=== PATIENT | female | born 1990 | race Caucasian/White ===

== ENCOUNTER 2018-05-15 04:20 | Inpatient (IN) | payer OTHER, SELFPAY ==
--- NOTE | 2018-05-15 | PLAC_PTH ---
PATIENT: GWEN GREENWOOD LOC: [facility] U#:[id number] AGE/SX: 27/F ROOM: WP009 RE05/15/[address]: Dr. Raisa Beebe DO : 1990 BED: 1 DIS: 05/18/2018 SPEC #: [id number] RECD: 05/16/18 08:09 STATUS: LLUVIA JIMENA #: [id number] DEBBY: 05/15/18 00:[address]: Raisa Beebe DEPT: SURGICAL PATHOLOGY RECD BY: Moreno Goodson ENTERED: 05/17/18 08:09 SP TYPE: PLACENTA OTHR DR: Cassius Smith MD Tissues: Placenta, NOS Procedures: Surgery Specimen Level V HEADER OPERATION: section PRE-OP DIAGNOSIS: tachycardia in labor TISSUE SUBMITTED: Placenta MICROSCOPIC DIAGNOSIS Placenta: Placental disc - third trimester placenta (406 g). - Focal area of infarction (2.5 cm in greatest dimension). Membrane - focal acute deciduitis and minimal acute chorioamnionitis. Umbilical cord - three blood vessels and no pathologic diagnosis. SJ:laine 05/19/18 MICROSCOPIC DESCRIPTION Slides are reviewed. GROSS DESCRIPTION SPECIMEN: PLACENTA / CLINICAL INFORMATION: A. Weight: 3.124 kg B. Gestational Age: 40 weeks C. Sex: Female PLACENTAL WEIGHT (POST FIXATION): 406 g PLACENTAL DIMENSIONS: 15 x 15 x 3 PLACENTAL SHAPE: Usual ovoid PLACENTAL WEIGHT FOR GESTATIONAL AGE: Within 10-99th percentile. MEMBRANES - Present A. Insertion: Marginal B. Site of rupture: at edge of placental disc C. Color of membrane: Finn-loaiza D. Abnormalities: None UMBILICAL CORD - Present A. Color: Finn-loaiza B. Insertion: Eccentric C. Length: 13.5 cm D. Diameter: 1.5 cm E. Number of vessels: Three F. Abnormalities: None PLACENTAL DISC - Present A. Color of surface: Finn-loaiza B. surface abnormalities: None C. Maternal cotyledons: Intact with minimal tears D. Attached retro placental clot: No clot E. Cut surface: Dark red and spongy. F. Lesions: a firm finn-white plaque-like lesion measuring 2.5 x 2 cm close to the maternal surface. G. Separate clot: Absent SECTIONS SUBMITTED: 1. Membrane roll and umbilical cord ( end notched) 2. Placental disc, and maternal surfaces and lesion 3. Placental disc, and maternal surfaces 4. Placental disc, and maternal surfaces AM:laine 05/18/18 TC: 5 CPT: 28838
[2018-05-15 03:16] VITALS: BMI 43.1
[2018-05-15] MEDS: Lactated Ringers 1,000 ML 50 ML IV ×5 (04:30→20:18)
[2018-05-15 04:51] LABS: Hematocrit 34.9 % (37-47); Hemoglobin 11.5 g/dl (12.0-15.0); Mean Corpuscular Hgb 28.9 pg (27.0-32.0); Mean Corpuscular Volume 87.7 fL (81-99); Mean Platelet Vol. 9.2 fl (6.2-12.0); Platelet Count 290 K/mm3 (150-450); RBC Distribution Width CV 14.7 % (11.6-14.6); RBC Distribution Width SD 47.4 fl (35.1-43.9); Red Blood Count 3.98 M/mm3 (4.2-5.4); White Blood Count 13.3 K/mm3 (4.4-11.0)
[2018-05-15 04:52] LABS: Scan Indicated on CBC? Y/N NO
[2018-05-15] MEDS: Ondansetron 4 MG/2 ML Vial IV (08:14)
--- NOTE | 2018-05-15 09:04 | PCM.HP.OB ---
- Problem List (1) Obesity affecting Status: Acute (2) Anemia affecting Status: Acute (3) Mild persistent asthma Status: Acute History Date of Admission: 05/15/18 Final DAT: 05/17/18 Final DAT Source: [place] <20 weeks Gestational age: 39 Weeks and 5 Days History of this : This is a 27 year-old, G [1], P [0], at 40 weeks gestational age. Presented to L&D with contractions that started yesterday morning around 0600. Throughout the day contractions increased in pain and frequency to every 5minutes. She thought her water had broken due to feeling fluild leakage. Upon arrival, membranes intact and 4cm. Progresed to 5cm and admitted to L&D. Allergies No Known Allergies Allergy (Verified 05/15/18 03:21) Home Medications: Home Medications Albuterol IH (ProAir) [Proair Hfa] 1 puff INHALATION Q4H PRN PRN 05/15/18 Vits [Prenatabs FA] 1 tablet PO DAILY 05/15/18 Smoking Status: Never smoker Alcohol: None Number of Fetus(es): 1 Heart Tracin, minimal variability, accels, variable decel, Category 2 TOCO: every 2-4 minutes, strong Vertex History Past Pregnancies: Past Pregnancies Delivery Date Name GA/Weeks Outcome Route Weight Infant Gender Labor Length Anesthesia Delivery Location Provider FOB Labs: GBS negative RPR negative Rubella immune HIV negative HBsAG negative O positive Expected Delivery Method: Spontaneous Vaginal Review of Systems Constitutional: Denies: Chills, Fever, Weight Change HEENT: Denies: Head Aches, Sinus Congestion, Sinus Drainage Cardiovascular: Denies: Chest Pain, Palpitations Respiratory: Denies: Cough, Shortness of breath at rest, Sputum production Gastrointestinal: Reports: Abdominal Pain. Denies: Nausea, Vomiting Genitourinary: Denies: Dysuria Psychiatric: Denies: Anxiety, Depression, Homicidal Ideations, Suicidal Ideations Physical Exam General: Alert, Oriented x3, No apparent distress HEENT: Atraumatic, Normocephalic Cardiovascular: Regular rate, Regular Rhythm, No murmurs Lungs: Clear to auscultation, No rhonchi, No wheeze Abdomen: Gravid Extremities:: No edema Estimated gestational size: Appropriate for gestational size Presentation: Cephalic Cervix Dilation (cm): 7 - AROM for meconium stained fluid Station: -2 Effacement (%): 90 Assessment/Plan All Active Problems Obesity affecting (Acute) Anemia affecting (Acute) Mild persistent asthma (Acute) This is a 27 year-old, G [1], P [0], at 40 weeks gestational age for active labor. Category 2 FHR P: 1) Admit to L&D 2) Continuous monitoring. 3) Epidural for pain management 4) Dr. Beebe notified of admission and patient status. Tiki Hawkins, ELAINE, CNM
--- NOTE | 2018-05-15 10:04 | PCM.PN.BLA ---
Progress Note At bedside to check on pt. Comfortable with epidural. Cvx 8/90/-2, majority of cervix noted anteriorly and on pt's left side. Pt placed back in left lateral. FHT 135/mod lalo/+accels/+occasional early decels. [place] ctx's q 2-4 min, spaced apart. Continue current management. Will start pitocin for augmentation if no cervical change at next check.
[2018-05-15] MEDS: Oxytocin 30 units/NS 500 ml 30 UNITS/500 ML IV.SOLN IV (11:14)
[2018-05-15] MEDS: fentaNYL-bupivacaine (epidural) 100 ML BAG EPIDURAL ×3 (11:33→20:18)
--- NOTE | 2018-05-15 19:24 | PCM.PN.BLA ---
Progress Note Was been at bedside pushing with patient. Cvx 10/100/+1, OP position. FHT 160/mod lalo/no accels/+early decels with psuhing. [place] w/ ctx's q 3-4 min. Pit at 8 mu/min. Attempted rotation of fetus, remained in OP position. Placed patient in hands and knees, and had her push in this position for ~20 min. Still OP position and +1 station. Patient has been pushing for 2.5 hours now. Placed patient in right lateral position, and having her push on her side.
--- NOTE | 2018-05-15 20:44 | PN_ITS ---
Progress Note Patient has been pushing for 3.5 hours. She is becoming exhausted. Station remains +1, and position OP. Infant forming more caput. Unable to rotate infant with position changes and manual rotation. FHT now 160/mod lalo/+accels/+late decels with pushing. Pt remains afebrile. [place] w/ ctx's q 2-4 min. Discussed PLTCS with patient given failure to descend. Reviewed risks including bleeding, infection, and injury to surrounding organs and vessels. Patient agreeable to PLTCS. Patient okay with blood transfusion if necessary.
[2018-05-15] MEDS: Sodium Citrate/Citric Acid 30 ML UDC PO (21:12)
[2018-05-15] MEDS: Cefazolin 2 GM in 0.9% Normal Saline 100 ML IV (21:15)
[2018-05-15] MEDS: Oxytocin 30 units/NS 500 ml 30 UNITS/500 ML IV.SOLN 167 UNITS IV (21:26)
[2018-05-15 22:25] VITALS: BP 138/75; BP 147/83; PULSE 106; RESP 18; TEMP 37; O2SAT 97
[2018-05-15] MEDS: Lactated Ringers 1,000 ML 100 ML IV (22:25)
--- NOTE | 2018-05-15 22:35 | OP.PCM_ITS ---
- Problem List (1) Failure of descent in labor, delivered, current hospitalization Status: Acute Delivery Classification: LIBERTAD Final DAT: 05/17/18 Gestational age: 39 Weeks and 5 Days Indications: 1. Term IUP 2. OP position 3. Failure to descend in labor Indications for : Failure of Descent Description of Procedure: Indications: The patient is a 27-year-old at 39 weeks gestation who presented in active labor. She progressed to 8 cm dilated, and then required augmentation with Pitocin. The was noted to be asynclitic and not well engaged. After augmentation with Pitocin she progressed to complete. The infant was noted to be in OP position. Manual rotation of the , as well as multiple position changes were attempted to rotate the . After 3-1/2 hours of pushing, the remained at +1 station. There was no change in station noted with pushing, and the remained in OP position despite attempts at rotation. The heart rate tracing then began to have late decelerations with pushing. The decision was made for a primary section. Risks, benefits, and alternatives were discussed with the patient she was fully consented. Procedure: The patient was taken to the operating room where epidural anesthesia was found to be adequate. The patient was prepped and draped in the usual sterile fashion in the dorsal supine position with a leftward tilt. A Pfannenstiel skin incision was made with the scalpel and carried through to the underlying layer of fascia. The fascia was incised in the midline and extended laterally using Koch scissors. Abdiel clamps were used to elevate the superior aspect of the fascial incision, and the underlying rectus muscles were dissected off bluntly and using Koch scissors. Attention was then turned to the inferior aspect of the fascial incision. The inferior aspect was grasped with Abdiel clamps, elevated, and the underlying rectus muscles were dissected off bluntly and using Koch scissors. The rectus muscles were dissected in the midline. The peritoneum was identified and entered using Metzenbaum scissors. The incision was extended superiorly and inferiorly with good visualization of the bladder. The bladder blade was inserted. The vesicouterine peritoneum was identified and entered sharply using Metzenbaum scissors. The incision was extended laterally and the bladder flap was created digitally. The bladder blade was reinserted. The lower uterine segment was incised in a transverse fashion using a scalpel and extended bluntly. The infant was subsequently delivered in OP position with assistance from a hand from below. The nose and mouth were bulb suctioned. The cord was immediately clamped and cut. The infant was handed off to the waiting nursery nurse. The placenta was delivered intact and sent to pathology. The uterus was exteriorized and cleared of all clot and debris. The uterine incisi on was repaired in one layer using Vicryl. Minimal bilateral extensions of the uterine incision were noted and repaired with the closure of the uterine incision. Several additional [id number] sutures were placed along the uterine incision for hemostasis. The uterus was placed back into the abdomen after noting normal bilateral fallopian tubes and ovaries. Arrista was placed over the uterine incision. Hemostasis was again noted. The peritoneum was reapproximated using Vicryl. The fascia was closed using Vicryl. The subcutaneous layer was irrigated and closed in a running fashion using Vicryl. The skin was then closed in a subcuticular fashion using Monocryl. Sponge, lap, instrument, and needle counts were correct. The patient was taken to the recovery room in stable condition. Amniotic Membrane Rupture Type: Artificial Amniotic Fluid Description: Moderate meconium Placenta Disposition: [facility] Drain: Max to straight drain Cord Entanglement: None Esitmated Blood Loss (ml): 700 Infant Gender: Female Delayed cord clamping: No Pre-op Antibiotic Given: Ancef 2 grams IV x1 Complications: None - Admit VTE Documentation VTE Mechan Device Prophylaxis: SCD's Baby B - Information Amniotic Membrane Rupture Type: Spontaneous
[2018-05-15 22:45] VITALS: BP 133/76; BP 147/83; PULSE 109; RESP 18; TEMP 37.1; O2SAT 97
[2018-05-15 23:00] VITALS: BP 130/79; BP 147/83; PULSE 108; RESP 18; TEMP 36.4; O2SAT 96
[2018-05-15 23:15] VITALS: BP 130/72; BP 147/83; PULSE 104; RESP 18; TEMP 36.5; O2SAT 96
[2018-05-15 23:30] VITALS: BP 124/65; BP 147/83; PULSE 101; RESP 18; TEMP 36.3; O2SAT 96
[2018-05-15 23:45] VITALS: BP 123/67; BP 147/83; PULSE 94; RESP 18; TEMP 36.2; O2SAT 96
[2018-05-16] VITALS (21 sets, daily range): BP systolic 108–147; BP diastolic 58–83; PULSE 88–118; RESP 16–20; TEMP 36.3–37.4; O2SAT 94–99
[2018-05-16] MEDS: Lactated Ringers 1,000 ML 100 ML IV ×2 (02:00→12:41)
[2018-05-16] MEDS: 0.9% Saline Lock 10 ML Syringe IV ×5 (04:47→23:08)
[2018-05-16] MEDS: Ketorolac 30 MG/ML Syringe IV ×4 (04:47→23:08)
[2018-05-16] MEDS: Cefazolin 2 GM in 0.9% Normal Saline 100 ML IV (04:48)
[2018-05-16 06:49] LABS: Hematocrit 28.3 % (37-47); Hemoglobin 9.2 g/dl (12.0-15.0); Mean Corp Hgb Conc 32.5 g/gl (32-36); Mean Corpuscular Volume 89.3 fL (81-99); Mean Platelet Vol. 8.7 fl (6.2-12.0); Platelet Count 216 K/mm3 (150-450); RBC Distribution Width CV 15.1 % (11.6-14.6); RBC Distribution Width SD 49.5 fl (35.1-43.9); Red Blood Count 3.17 M/mm3 (4.2-5.4); White Blood Count 13.9 K/mm3 (4.4-11.0)
[2018-05-16 07:03] LABS: Scan Indicated on CBC? Y/N NO
--- NOTE | 2018-05-16 07:07 | NURSING ---
epidural catheter removed @ 0545 and blue tip intact.
--- NOTE | 2018-05-16 08:43 | PCM.PN.OB ---
Patient Problems: Active and Suspected Problems Obesity affecting (Acute) Anemia affecting (Acute) Mild persistent asthma (Acute) Failure of descent in labor, delivered, current hospitalization (Acute) Subjective: Patient doing well. Pain is well controlled. Has not ambulated yet. Max is still in place. Tolerating small amounts of PO without nausea or vomiting. Denies lightheadedness, dizziness, chest pain, shortness of breath, leg pain. Lochia normal. - Physical Exam General: Alert, Oriented x3 HEENT: Atraumatic Lungs: - - No increased resp effort Abdomen: Soft, - - ATTP, FF@U, bandage c/d/i without surrounding errythema or swelling Extremities: No clubbing, No Calf Tenderness Skin: No rashes Neurological: Neuro grossly intact Psych/Mental Status: Normal Affect, Appropriate Vital Signs Temp Pulse Resp BP Pulse Ox 97.6 F L 106 H 18 108/67 97 05/16/18 06:45 05/16/18 07:49 05/16/18 07:49 05/16/18 06:45 05/16/18 07:49 Oxygen Delivery Method Room Air Weight: 228 lb 4 oz Body Mass Index (BMI) 43.1 Intake and Output for Last 24 Hours 05/14/18 05/15/18 05/16/18 23:59 23:59 23:59 Intake Total 4587 / 4587 1401 / 1401 Output Total 1600 / 1600 525 / 525 Balance 2987 / 2987 876 / 876 Laboratory Tests Past 24 Hrs 05/16/18 06:35 WBC 13.9 H RBC 3.17 L Hgb 9.2 L Hct 28.3 L MCV 89.3 MCH 29.0 MCHC 32.5 RDW 15.1 H RDW Differential 49.5 H Plt Count 216 MPV 8.7 Medical Necessity - Tobacco Use Smoking Status: Never smoker Assessment/Plan All Active Problems Obesity affecting (Acute) Anemia affecting (Acute) Mild persistent asthma (Acute) Failure of descent in labor, delivered, current hospitalization (Acute) POD#1 s/p PLTCS for failure to descend. - HR 101, 106 this AM. Otherwise AF, VSS. Continue to monitor tachycardia. Pt asymptomatic this morning. Likely from acute blood loss anemia from surgery - Hgb 9.2 post-op, start iron daily - DVT proph: lovenox and SCD's - - Undecided on control plan - Dispo: Encouraged ambulation today. Max to be removed today. Routine PO care
[2018-05-16] MEDS: Enoxaparin 40 MG/0.4 ML Syringe SC (11:02)
[2018-05-16] MEDS: Ferrous Sulfate 325 MG Tablet PO (12:43)
[2018-05-16] MEDS: Senna/Docusate Sodium 1 Tablet PO (12:45)
[2018-05-16] MEDS: Acetaminophen 500 MG Tablet 1000 MG PO (20:33)
[2018-05-17 01:30] VITALS: BP 108/65; PULSE 99; RESP 16; TEMP 36.5; O2SAT 95
[2018-05-17] MEDS: 0.9% Saline Lock 10 ML Syringe IV ×4 (04:19→23:11)
[2018-05-17] MEDS: Ketorolac 30 MG/ML Syringe IV ×4 (04:19→23:11)
[2018-05-17 07:50] VITALS: BP 127/82; PULSE 113; RESP 20; TEMP 37.2; O2SAT 97
[2018-05-17] MEDS: Enoxaparin 40 MG/0.4 ML Syringe SC (10:35)
[2018-05-17] MEDS: Bisacodyl 10 MG Suppository RECTAL (10:57)
--- NOTE | 2018-05-17 12:57 | PCM.PN.OB ---
Patient Problems: Active and Suspected Problems Obesity affecting (Acute) Anemia affecting (Acute) Mild persistent asthma (Acute) Failure of descent in labor, delivered, current hospitalization (Acute) Subjective: Doing well per patient and nursing staff. Ambulating and taking PO without difficulty. Voiding and passing flatus, no BM. Has taken stool softner and suppository. Taking PO iron supplementation. at this time. Denies any headache, visual changes, chest pain, SOB, increased bleeding or pain. Would like discharge home tomorrow. - Physical Exam General: Alert, Oriented x3, Cooperative HEENT: Atraumatic, Normocephalic Lungs: Clear to auscultation, No rhonchi, No wheeze Cardiovascular: Regular rate, Regular Rhythm, No murmurs Abdomen: Hyperactive Bowel Sounds, - - Fundus firm 1 below U. Insicion dry and intact, no surrounding erythema. Extremities: No edema, No Calf Tenderness Psych/Mental Status: Normal Affect, Appropriate Vital Signs Temp Pulse Resp BP Pulse Ox 98.9 F 113 H 20 H 127/82 H 97 05/17/18 07:50 05/17/18 07:50 05/17/18 07:50 05/17/18 07:50 05/17/18 07:50 Oxygen Delivery Method Room Air Weight: 228 lb 4 oz Body Mass Index (BMI) 43.1 Intake and Output for Last 24 Hours 05/15/18 05/16/18 05/17/18 23:59 23:59 23:59 Intake Total 4587 / 4587 3749 / 3749 Output Total 1600 / 1600 2775 / 2775 Balance 2987 / 2987 974 / 974 Medical Necessity - Tobacco Use Smoking Status: Never smoker Assessment/Plan All Active Problems Obesity affecting (Acute) Anemia affecting (Acute) Mild persistent asthma (Acute) Failure of descent in labor, delivered, current hospitalization (Acute) A:POD #2 Section SANGITA P: 1) Routine post op care. 2) Planning D/C home tomorrow. Asking for further assistance with , to see her today. 3) No BM, bowel sounds hyperactive, given suppository.
[2018-05-17 14:00] VITALS: BP 121/78; PULSE 109; RESP 20; TEMP 36.6; O2SAT 97
[2018-05-17] MEDS: Ferrous Sulfate 325 MG Tablet PO (14:37)
[2018-05-17 20:10] VITALS: BP 124/64; PULSE 89; RESP 18; TEMP 36.3
[2018-05-18 02:00] VITALS: BP 131/65; PULSE 89; RESP 18; TEMP 36.7
--- NOTE | 2018-05-18 08:27 | PCM.PN.OB ---
Patient Problems: Active and Suspected Problems Obesity affecting (Acute) Anemia affecting (Acute) Mild persistent asthma (Acute) Failure of descent in labor, delivered, current hospitalization (Acute) Subjective: Patient doing well. Pain controlled. Tolerating regular diet without nausea or vomiting anus. Spontaneously voiding without difficulty. Passing flatus. Lochia normal. Breast-feeding. Denies chest pain, shortness of breath, leg pain. Feels ready to go home today. - Physical Exam General: Alert, Oriented x3 HEENT: Atraumatic Lungs: - - No increased resp effort Abdomen: Soft, Non Tender, - - FF@U, dressing c/d/i and without surrounding errythema Extremities: No edema, No Calf Tenderness Skin: No rashes Neurological: Neuro grossly intact Psych/Mental Status: Normal Affect, Appropriate Vital Signs Temp Pulse Resp BP Pulse Ox 98.1 F 89 18 131/65 H 97 05/18/18 02:00 05/18/18 02:00 05/18/18 02:00 05/18/18 02:00 05/17/18 14:00 Oxygen Delivery Method Room Air Weight: 228 lb 4 oz Body Mass Index (BMI) 43.1 Intake and Output for Last 24 Hours 05/16/18 05/17/18 05/18/18 23:59 23:59 23:59 Intake Total 3749 / 3749 Output Total 2775 / 2775 Balance 974 / 974 Medical Necessity - Tobacco Use Smoking Status: Never smoker Assessment/Plan All Active Problems Obesity affecting (Acute) Anemia affecting (Acute) Mild persistent asthma (Acute) Failure of descent in labor, delivered, current hospitalization (Acute) Patient is postop day 3 from a primary low transverse section. - , considering formula feeding - Declines control - Doing well - D/c home today. Reviewed discharge instructions
--- NOTE | 2018-05-18 08:33 | DCINST_ITS ---
Discharge Diet: No Restrictions Discharge Activity: May not drive while taking narcotic pain medications., May Shower May resume sexual activity in: 4-6 weeks Weight Bearing Status: Weight bearing as tolerated Lifting Restrictions: Nothing greater than 25 lbs Call your doctor if your incision/area has: Increased Pain/ Swelling, Increased Redness, Foul Smelling Discharge, Swelling at the incision site Call your doctor if you observe: Fever of 101 or Higher, Inability to urinate, Inability to have a bowel movement, Using more than one pad per hour, Shortness of breath, Dizziness, Chest pain, Increased palpitations (irregular heartbeat), Calf discomfort, Uncontrolled pain Suture Line Care: Avoid Pulling/Pushing Additional Instructions: If you experience any of the following, contact your healthcare provider. * Bleeding that soaks a pad every hour for 2 hours * Fever 100.4 or higher * Unrelieved incision or abdominal pain * Swelling, redness, discharge or bleeding from your incision or episiotomy site * Your incision begins to separate * Problems urinating (including inability to urinate or burning while urinating). * Visual changes * Severe headache * Flu-like symptoms * Pain or redness in one of both of your breasts * Pain, warmth, tenderness or swelling in your legs, especially the calf area * Frequent nausea and vomiting * Symptoms of depression or anxiety If you experience any of the following, call 911 or go to the nearest Emergency Room. * Chest pain * Problems breathing * Seizure activity * Partial or complete paralysis of a body part, slurred speech, weakness or drooping of the face, or a sudden inability to walk or hold your balance Allergies/Adverse Reactions: Allergies No Known Allergies Allergy (Verified 05/15/18 03:21) Medications to take at Discharge Albuterol IH (ProAir) [Proair Hfa] 1 puff INHALATION Q4H PRN PRN 05/15/18 Vits [Prenatabs FA] 1 tablet PO DAILY 05/15/18 Docusate Sodium [Colace] 100 mg PO BID #60 capsule 05/18/18 Oxycodone HCl/Acetaminophen [Percocet 5/325] 1 tablet PO Q6H PRN PRN 7 Days #28 tablet 05/18/18 The following prescriptions were given: Oxycodone HCl/Acetaminophen [Percocet 5/325] 1 tablet PO Q6H PRN PRN 7 Days #28 tablet PRN Reason: Pain Docusate Sodium [Colace] 100 mg PO BID #60 capsule Follow-Up: Call to make an appointment with your doctor for an incision check in 1-2 weeks. You will also need a 6 week post- follow up appointment. Test results from this visit will be discussed in further detail at your follow- up appointment, if applicable. When: In 1 week for incision check. In 4-6 weeks for visit. Primary Care Physician: Cassius Smith MD [Primary Care Provider] -
[2018-05-18 09:00] VITALS: BP 118/69; PULSE 92; RESP 24; TEMP 36.8; O2SAT 95
[2018-05-18] MEDS: Ferrous Sulfate 325 MG Tablet PO (12:22)
[2018-05-18] MEDS: Enoxaparin 40 MG/0.4 ML Syringe SC (12:22)
[2018-05-18 13:45] VITALS: BP 139/80; PULSE 89; TEMP 37.2; O2SAT 98
--- NOTE | 2018-05-19 08:07 | PCM.DC.BLA ---
Discharge Summary Date of Admission: 05/15/18 Date of Discharge: 05/18/18 Summary: Patient is a 27-year-old at 39 weeks who presented in labor on 05/15/18. She progressed to complete. was in OP position. With position changes and attempt at manual rotation the did not rotate. She pushed for 3.5 hours without change in station. Unable to perform a vacuum assisted vaginal delivery given station. She had a PLTCS for failure to descend. Was ambulating, spontaneously voiding, tolerating a regular diet, and pain was well controlled on POD#3. She was discharged to home in good condition on POD#3. - Physical Exam Vital Signs Temp Pulse Resp BP Pulse Ox 98.9 F 89 24 H 139/80 H 98 05/18/18 13:45 05/18/18 13:45 05/18/18 09:00 05/18/18 13:45 05/18/18 13:45 Oxygen Delivery Method Room Air Weight: 228 lb 4 oz Body Mass Index (BMI) 43.1
== END 2018-05-18 14:07 | disposition home or self-care (01) | DRG 787 ==
LOC: WPOUT 04:24
PROVIDERS: Admitting Provider Obstetrics & Gynecology; Family Provider Internal Medicine; PCP Internal Medicine; Visit Provider Obstetrics & Gynecology
DX: O62.1 Secondary uterine inertia (principal); Z68.41 Body mass index [BMI] 40.0-44.9, adult; D62 Acute posthemorrhagic anemia; Z3A.40 40 weeks gestation of pregnancy; Z37.0 Single live birth; O77.0 Labor and delivery complicated by meconium in amniotic fluid; O76 Abnormality in fetal heart rate and rhythm complicating labor and delivery; O99.02 Anemia complicating childbirth; O99.214 Obesity complicating childbirth; O75.89 Other specified complications of labor and delivery; J45.30 Mild persistent asthma, uncomplicated; Z79.51 Long term (current) use of inhaled steroids; O90.81 Anemia of the puerperium; O48.0 Post-term pregnancy
CPT/HCPCS: 59025; 59050; 85027; 86850; 86900; 88307; 99218; J7120; A4216; G0378; J2405

== ENCOUNTER 2021-01-11 23:50 | Outpatient (CLI) | payer OTHER, SELFPAY ==
[2021-01-12 00:07] VITALS: TEMP 36.3
[2021-01-12 00:08] VITALS: BP 140/75; PULSE 96
[2021-01-12 00:10] VITALS: BMI 43.6
--- NOTE | 2021-01-12 00:40 | NURSING ---
0025 patient came into unit from [facility] with 20g IV in right AC, this RN discontinued saline lock at this time and patient tolerated well.
--- NOTE | 2021-01-12 01:42 | OB.TRI.HP_ITS ---
HPI - General HPI Narrative GWEN GREENWOOD, is a 30 T 24.1 weeks gestation who presents from [facility] ED. She went to ED tonight due to epigastric pain. She reports feeling this once before but thought it was something she ate and it went away. Denies any cramping, contractions, loss of fluid or vaginal bleeding. UA collected and FHT via dopper were 150 bpm. She was sent here due to [place] not having a L&D unit. She reports feeling fine now, denies pain. Maternal Data Information DAT Calculator Estimated Delivery Date Method Current WG Current Estimate 05/03/21 Manual 24w 1d PFSH PFSH Home Medications albuterol sulfate [Proair Hfa] 1 puff INHALATION Q4H PRN PRN 05/15/18 [History Last Taken 01/11/21 15:00] vit,[id number] [Prenatabs FA] 1 tab PO DAILY 05/15/18 [History Last Taken 01/10/21 20:00] docusate sodium [Colace] 100 mg PO BID #60 capsule 05/18/18 [Rx Last Taken Unknown] budesonide [Pulmicort Flexhaler] 90 mcg INHALATION DAILY 01/12/21 [History Last Taken 01/11/21 08:00] Allergy/AdvReac Type Severity Reaction Status Date / Time No Known Allergies Allergy Verified 01/12/21 00:35 Social History Smoking Status: Never smoker History Elective abortions Hx Para 0 Spontaneous abortions Hx # Term Pregnancies Ectopic pregnancies Hx # Pregnancies Multiple births # of living children ROS Eyes Eyes: Denies blurry vision Cardiovascular Cardiovascular: Reports none; Denies chest pain at rest, chest pain with activity or dizziness Respiratory/Chest Respiratory/Chest: Denies cough or dyspnea Gastrointestinal Gastrointestinal: Reports none and other; Denies diarrhea or vomiting Genitourinary Genitourinary: Denies dysuria Musculoskeletal Musculoskeletal: Reports none Integumentary Integumentary: Reports none; Denies rash Neurologic Neurologic: Denies dizziness, headache(s) or other visual disturbances Psychiatric Psychiatric: Reports none Physical Exam Const alert and no apparent distress General Appearance: cooperative Orientation / Consciousness: awake Exam Limitations: no limitations HEENT normocephalic Eyes General Eye: normal appearance of both eyes Neck full ROM Chest inspection of chest normal Resp normal respiratory effort and normal air movement Effort and Inspection: symmetric chest movement Auscultation: clear to auscultation bilaterally Cardio regular rate GI soft to palpation, non-tender and non-distended Inspection: and other Back/Spine normal ROM Extremity full ROM, normal capillary refill and no calf tenderness Skin no rashes or lesions noted Neuro oriented x3 and CN's II-XII intact bilaterally Psych mental status grossly normal NST FHR Rate Baby A Baseline: 155 NST Reactive:: Appropriate for gestational age Uterine Activity:: None Assessment & Plan (1) Obesity affecting : QUALIFIERS: Trimester: unspecified trimester Qualified Code(s): O99.210 - Obesity complicating , unspecified trimester (2) Epigastric pain: (3) 24 weeks gestation of : (4) Previous delivery affecting : PLAN: UA collected and sent FHT via doppler TOCO- no contractions Suspect acid reflux Denies any current pain D/C home with follow up in office
== END 2021-01-12 00:30 | disposition home or self-care (01) ==
LOC: WPOUT 23:54 → WP 23:54
PROVIDERS: PCP Internal Medicine; Visit Provider Advanced Practice Midwife
DX: O99.212 Obesity complicating pregnancy, second trimester (principal); O26.892 Other specified pregnancy related conditions, second trimester; O34.212 Maternal care for vertical scar from previous cesarean delivery; R10.13 Epigastric pain; E66.9 Obesity, unspecified; Z3A.24 24 weeks gestation of pregnancy; Z79.51 Long term (current) use of inhaled steroids
CPT/HCPCS: 59025; 59050; 99218; G0378

== ENCOUNTER 2021-01-17 04:59 | Inpatient (IN) | payer OTHER, SELFPAY ==
[2021-01-17] VITALS (33 sets, daily range): BP systolic 122–144; BP diastolic 60–88; PULSE 88–130; RESP 16; TEMP 36.6–36.9; O2SAT 94–99; BMI 43.0
[2021-01-17] MEDS: Lactated Ringers 1,000 ML 999 ML IV (03:20)
[2021-01-17] MEDS: Phenazopyridine 95 MG Tablet 190 MG PO (03:35)
[2021-01-17 03:37] LABS: Mucous, Urine 0 SEEN /hpf (<or=2+)
[2021-01-17 03:39] LABS: Color, Urine Yellow (Yellow); Glucose, Dipstick Normal (Normal); Ketone-Dipstick 50 mg/dl (Negative); Leukocyte Esterase-Dipstick 500 /ul (Negative); Nitrite-Dipstick Negative (Negative); Occult Blood-Urine 250 /ul (Negative); Protein-Dipstick 30 mg/dl (Negative); Specific Gravity, Urine 1.015 (1.002-1.030); Urine Bilirubin Dipstick Negative (Negative); Urine Clarity Sl. Cloudy (Clear); Urine Urobilinogen Normal (Normal)
[2021-01-17] MEDS: Acetaminophen 500 MG Tablet 1000 MG PO (03:39)
[2021-01-17 03:41] LABS: Absolute Lymphocyte Count 1.76 X10^3/uL (0.83-4.51); Absolute Neutrophil Count 13.4 X10^3/uL (2.0-7.7); Basophil# 0.03 X10^3/uL; Basophil% 0.2 % (0-1); Eosinophil# 0.03 X10^3/uL; Eosinophils% 0.2 % (0-5); Hematocrit 32.1 % (37-47); Hemoglobin 10.5 g/dL (12.0-15.0); Lymphocyte # 1.76 X10^3/ul (0.83-4.51); Lymphocyte % 10.7 % (19-41); Mean Corp Hgb Conc 32.7 g/dL (32-36); Mean Corpuscular Volume 88.7 fL (81-99); Mean Platelet Vol. 9.3 fl (6.2-12.0); Monocyte# 1.15 X10^3/uL; NRBC Flagged by Analyzer 0 % (0-5); Neutrophil # 13.42 X10^3/uL (2.7-7.7); Neutrophil % 81.2 % (47-70); Platelet Count 310 K/mm3 (150-450); RBC Distribution Width CV 12.4 % (11.6-14.6); RBC Distribution Width SD 39.8 fl (35.1-43.9); Red Blood Count 3.62 M/mm3 (4.2-5.4); White Blood Count 16.5 K/mm3 (4.4-11.0)
[2021-01-17 03:51] LABS: Bacteria 3+ /hpf (None Seen); Red Blood Cells-Urine 10-25 SEEN /hpf (0-5); Squamous Epithelial Cells - UA 10-25 SEEN /hpf (5-10); White Blood Cells >100 SEEN /hpf (0-5)
[2021-01-17 03:52] LABS: Transitional Epithelial - Ur 0-5 SEEN /hpf (0-5)
[2021-01-17 04:06] LABS: ALB/GLOB Ratio 0.6 RATIO (0.9-2.4); AST(SGOT) 18 U/L (15-37); Alanine Aminotransfer ALT/SGPT 18 U/L (13-56); Albumin, Serum 2.7 g/dL (3.2-5.0); Alkaline Phosphatase 119 U/L (45-117); Anion Gap 9 (5-15); BUN 3 mg/dL (7-18); BUN/Creat Ratio 6.8 RATIO (10-20); Calcium,Total 9.1 mg/dL (8.5-10.1); Chloride 105 mmol/L (98-107); Creatinine, Serum 0.44 mg/dL (0.55-1.02); EST Glomerular Filtration Rate 177 mL/min (>60); Est Glom Filt Rate - Afr Amer 214 mL/min (>60); Estimated Creatinine Clearance 139.79 ml/min; Globulin 4.3 g/dL (2.2-4.2); Glucose 110 mg/dL (74-106); Potassium 3.8 mmol/L (3.5-5.1); Sodium Level 137 mmol/L (136-145)
[2021-01-17] MEDS: Magnesium Sulfate 4gm/100mL 4 GM/100 ML IV.SOLN. IV (04:40)
[2021-01-17 04:55] LABS: ROM Internal Control Test YES-OK TO RESULT pt. (Internal QC); ROM Patient Test Negative (Negative)
[2021-01-17] MEDS: Magnesium Sulfate 4gm/100mL 2 GM/50 ML IV.SOLN. IV (05:01)
--- NOTE | 2021-01-17 05:05 | PCM.HP.OB ---
HPI - General General Date of Admission: 01/17/21 HPI Narrative GWEN GREENWOOD, is a 30year old that presented to triage with general lower abdominal pain. Called to patient's room for assessment due to patient's pain. Denies any loss of fluid or vaginal bleeding. Positive movement. uncomplicated thus far. History of section due to failure to progress in 2018. Upon assessment of patient- SROM while in room. CE /0. Dr. Partida notified and in route to hospital. Maternal Data Information DAT Calculator Estimated Delivery Date Method Current WG Current Estimate 05/03/21 Manual 24w 6d PFSH PFSH Home Medications albuterol sulfate [Proair Hfa] 1 puff INHALATION Q4H PRN PRN 05/15/18 [History Last Taken 01/16/21 21:00] vit,[id number] [Prenatabs FA] 1 tab PO DAILY 05/15/18 [History Last Taken 01/16/21 22:00] budesonide [Pulmicort Flexhaler] 90 mcg INHALATION DAILY 01/12/21 [History Last Taken 01/16/21 10:00] nitrofurantoin 100 mg PO BID 01/17/21 [History Last Taken Unknown] Allergy/AdvReac Type Severity Reaction Status Date / Time No Known Allergies Allergy Verified 01/12/21 00:35 Social History Smoking Status: Never smoker History Elective abortions Hx Para 0 Spontaneous abortions Hx # Term Pregnancies Ectopic pregnancies Hx # Pregnancies Multiple births # of living children NST FHR Rate Baby A Baseline: 150 Variability:: Moderate NST Reactive:: Appropriate for gestational age Uterine Activity:: TOCO reading every 5-7 minutes, palpate mild to moderate and relaxed in between ROS Eyes Eyes: Denies blurry vision, change in vision or spots in vision ENT HEENT: Denies dizziness or headache(s) Cardiovascular Cardiovascular: Denies chest pain, dyspnea or lightheadedness Respiratory/Chest Respiratory/Chest: Denies cough, dyspnea, shortness of breath at rest or shortness of breath with exertion Gastrointestinal Gastrointestinal: Reports abdominal pain, constipation and cramping Genitourinary Genitourinary: Denies change in urinary stream, difficulty urinating or dysuria Musculoskeletal Musculoskeletal: Reports none Integumentary Integumentary: Denies rash Neurologic Neurologic: Denies dizziness, headache(s), memory loss or weakness Psychiatric Psychiatric: Reports none Vital Signs Vital Signs Vital Signs: 01/17/21 03:04 01/17/21 03:34 01/17/21 03:58 Pulse Rate 118 H 112 H 108 H Blood Pressure 140/77 H BP Systolic 140 BP Diastolic 77 Pulse Ox 95 98 01/17/21 04:01 01/17/21 04:03 01/17/21 04:46 Pulse Rate 120 H 111 H 111 H Blood Pressure BP Systolic BP Diastolic Pulse Ox 94 98 97 01/17/21 04:51 01/17/21 04:53 01/17/21 04:56 Pulse Rate 118 H 130 H 127 H Blood Pressure 138/71 H BP Systolic 138 BP Diastolic 71 Pulse Ox 98 98 01/17/21 05:01 Pulse Rate 129 H Blood Pressure BP Systolic BP Diastolic Pulse Ox 98 Weight Weight: 227 lb 11.8 oz Body Mass Index (BMI) 43.0 Physical Exam Const alert, oriented x3 and no apparent distress General Appearance: cooperative Orientation / Consciousness: awake Exam Limitations: no limitations HEENT normocephalic Head and Scalp: normal to inspection Eyes General Eye: normal appearance of both eyes Neck full ROM and no lymphadenopathy Lymph Lymphatic: no lymphadenopathy noted Chest inspection of chest normal Resp normal respiratory effort, normal air movement and clear to auscultation bilaterally Effort and Inspection: able to speak in complete sentences and symmetric chest movement Cardio regular rate and regular rhythm GI normal to inspection, nondistended, normoactive bowel sounds Manual OB Exam: presentation cephalic, dilated 4, effaced 80 and station 0 Amniotic Fluid: clear amniotic fluid Back/Spine normal ROM Extremity full ROM and no calf tenderness Skin no rashes or lesions noted General Skin Exam: no breakdown Neuro oriented x3 and CN's II-XII intact bilaterally Psych mental status grossly normal and thought process normal Labs Labs Labs: Blood Type O POSITIVE Antibody Screen NEGATIVE Hct 32.1 % (37-47) L Hgb 10.5 g/dL (12.0-15.0) L Group B Strep DNA Pending Rhogam given: No Assessment & Plan (1) 23 weeks gestation of : (2) Abdominal pain affecting : (3) Previous delivery affecting : (4) Obesity affecting : QUALIFIERS: Trimester: unspecified trimester Qualified Code(s): O99.210 - Obesity complicating , unspecified trimester PLAN: CE Admit to labor and delivery labor - prepare for transport IV fluids per policy Routine labs Start Magnesium sulfate- 6 gm bolus then to run at 2 gm/hr Celestone 12 mg x1 IM now Start PCN 5 million units IV x1 now TAUS -vertex position Dr. Partida at bedside
[2021-01-17] MEDS: Magnesium Sulfate 20 GM/500 ML BAG IV (05:13)
--- NOTE | 2021-01-17 05:14 | PN_ITS ---
Progress Note I was called regarding patient status at [facility]. When I arrived to the hospital magnesium sulfate 6 g loading dose was running followed by 2 g/hr maintenance dose. Penicillin G ordered and injection of Celestone was given. Bedside ultrasound was performed vertex presentation appreciated. Vaginal exam on my arrival -/0 with SROM prior to my exam. Discussion with the patient regarding previous section. Patient reports she was complete and pushing and had a section. I discussed w ith the patient that due to the early gestational age/small fetus recommendation at this time would be for vaginal delivery. Patient was counseled on risks of vaginal after section and agrees to proceed at this time. Phone call was made to [facility] Dr. Zamudio at [facility] original plan was to transport the patient but she had made cervical change from 4 to 5 cm with painful contra ctions. Decision at this time is to keep the patient at [facility] and [facility] transport team was notified they are in route.
[2021-01-17] MEDS: Betamethasone/Betamethasone 30 MG/5 ML Vial 12 MG IM (05:19)
[2021-01-17 05:49] LABS: Group B Strep DNA By PCR Negative (Negative); Internal Control PASS; Probe Check PASS; Specimen Processing Control PASS
[2021-01-17] MEDS: Oxytocin 30 units/NS 500 ml 30 UNITS/500 ML IV.SOLN 334 UNITS IV (06:24)
--- NOTE | 2021-01-17 06:35 | EX.PCM.OBRPT ---
Assessment & Plan (1) 24 weeks gestation of : (2) premature rupture of membranes (PPROM) delivered, current hospitalization: (3) delivery: (4) (vaginal after ): Maternal Data Information DAT Calculator Estimated Delivery Date Method Current WG Current Estimate 05/03/21 Manual 24w 6d Final DAT: 05/03/21 Final DAT Source: [place] <20 weeks Gestational age: 24.6 Vaginal Delivery Maternal Presentation Maternal Presentation: Active Labor and Spontaneous Rupture of Membranes Operative Information Date of Procedure: 01/17/21 Pre-Operative Diagnosis: PPROM, labor, 24 weeks gestation, previous c/s Post-Operative Diagnosis: same, successful , live female Surgery / Procedure Performed: Spontaneous Vaginal Delivery Type of Anesthesia: None Estimated Blood Loss: 150 Time of Delivery: 06:21 Findings Description of Procedure: Patient was transferred to the operating room for delivery to allow for more room for resuscitation. [place] [facility] transport team was present. Patient was complete and with good maternal pushing efforts delivered the without complication. Of note the umbilical cord was very short the cord was clamped and cut and the was then handed to the nursery team for resuscitation. At this time the Pitocin was started and placenta was delivered intact without complication. Again of note the umbilical cord was very short. Appeared that all the placenta was intact. No vaginal lacerations appreciated. Cord blood was obtained. Attempted to get arterial and venous cord gases but unable. Presentation: Vertex Amniotic Membrane Rupture Type: Spontaneous Time of Membrane Rupture: 0425 Amniotic Fluid Description: Clear Placental Delivery Description: Spontaneous Placenta Disposition: Sent with transport team Specimen(s) Removed: placenta Cord Vessel Description: 3 Vessels Cord Entanglement: None Infant A Gender: Female (Unable to obtain apgars due to rescuistation in progress ) Delayed Cord Clamping: No Post Vaginal Delivery Medications Given After Delivery: IV Pitocin Episiotomy Description: None Laceration: None Complication Complications: None Admit VTE Documentation VTE Present on Admission: Yes VTE Pharm Prophylaxis Ordered: No Reason Prophylaxis Not Ordered: Procedure Not Indicated
--- NOTE | 2021-01-17 06:42 | PCM.DC ---
Discharge Instructions Diet Discharge Diet: No restrictions Activity May resume sexual activity in: 6-8 weeks Dressing / Incision Call your doctor if you observe: Fever of 101 or Higher, Inability to urinate, Using more than 1 pad per hour and Uncontrolled pain Follow Up Care Please Follow Up With: Summer Licea MD When: 1-2 weeks post and again at 6 weeks post . [phone] Test Results: Test results from this visit will be discussed in further detail at your follow-up appointment, if applicable. Discharge Plan Admission Admit Date/Time: 01/17/21 04:59 Attending Provider: Summer Licea Primary Care Provider: Cassius Smith Consulting Providers: Minerva Garcia Discharge Orders/Prescriptions Prescriptions: No Action albuterol sulfate [ProAir HFA] 1 PUFF inhaler 1 puff inhalation Q4H PRN PRN (Reason: Asthma) RF: 0 Prenatabs FA 1 TABLET tablet 1 tab PO DAILY RF: 0 Pulmicort Flexhaler 90 mcg/actuation Aerosol Powdr Breath Activated 90 mcg INHALATION DAILY RF: 0 nitrofurantoin 100 mg Capsule 100 mg PO BID RF: 0 Referrals / Follow Up: Cassius Smith MD [Primary Care Provider] -
[2021-01-17] MEDS: Naproxen 500 MG Tablet PO (10:07)
== END 2021-01-17 13:50 | disposition designated cancer center or children's hospital (05) | DRG 807 ==
LOC: WPOUT 04:59 → WP 05:00
PROVIDERS: Advanced Practice Midwife; Admitting Provider Obstetrics & Gynecology; PCP Internal Medicine; Visit Provider Obstetrics & Gynecology
DX: O34.219 Maternal care for unspecified type scar from previous cesarean delivery (principal); Z37.0 Single live birth; O42.912 Preterm premature rupture of membranes, unspecified as to length of time between rupture and onset of labor, second trimester; Z3A.24 24 weeks gestation of pregnancy; O99.214 Obesity complicating childbirth; E66.9 Obesity, unspecified; O69.3XX0 Labor and delivery complicated by short cord, not applicable or unspecified
CPT/HCPCS: 59025; 59050; 76815; 80053; 81001; 84112; 85025; 86850; 86900; 86901; 87081; 87653; 99218; J7120; G0378; J0702